=== PATIENT | male | born 1990 | race Two or more races ===

== ENCOUNTER 2021-04-08 12:15 | Emergency (ER) | payer SELFPAY ==
[~2021-04-08] VITALS: Ht 165.1 cm; Wt 90.7 kg
[2021-04-08 18:25] VITALS: BP 138/80
== END 2021-04-08 18:29 | disposition home or self-care (01) ==
LOC: ER 12:15
DX: H57.04 Mydriasis (principal); F17.210 Nicotine dependence, cigarettes, uncomplicated; J45.909 Unspecified asthma, uncomplicated
CPT/HCPCS: 70450; 70480